=== PATIENT | male | born 1990 | race Caucasian/White ===

== ENCOUNTER 2016-06-02 13:17 | Emergency (ER) | payer OTHER ==
[~2016-06-02] VITALS: Ht 175.3 cm; Wt 112.4 kg
[2016-06-02] MEDS ORDERED: [UNRECOGNIZED DRUG - OTHER] (13:30)
[2016-06-02] MEDS ORDERED: CLON-412 PO (13:30)
[2016-06-02] MEDS ORDERED: MIRT30TA3 PO (13:30)
[2016-06-02] MEDS ORDERED: PAXI30TA11 PO (13:30)
[2016-06-02] MEDS ORDERED: [UNRECOGNIZED DRUG - REMARK] (13:30)
[2016-06-02] MEDS ORDERED: NORCOTAB PO (15:09)
[2016-06-02 15:24] VITALS: BP 148/102
--- NOTE | 2016-06-03 06:14 | REP ---
Pain after trauma. COMPARISON: 08/07/2015. There is an acute fracture involving the base of the fifth metacarpal. There is an old healed fracture involving the base of the fourth metacarpal. Signed by Denzel Diaz DO 06/03/2016 03:39 P
== END 2016-06-02 15:28 | disposition home or self-care (01) ==
LOC: M ED 14:33
DX: S62.346A Nondisplaced fracture of base of fifth metacarpal bone, right hand, initial encounter for closed fracture (principal); W23.1XXA Caught, crushed, jammed, or pinched between stationary objects, initial encounter; Y92.89 Other specified places as the place of occurrence of the external cause; Y93.89 Activity, other specified; Y99.9 Unspecified external cause status

== ENCOUNTER → 2016-11-11 | Outpatient (REF) | payer OTHER ==
[~2016-11-11] MED LIST: CLON-412 PO; MIRT30TA3 PO; NORCOTAB PO; PAXI30TA11 PO; [UNRECOGNIZED DRUG - OTHER]; [UNRECOGNIZED DRUG - REMARK]
[2016-11-11 16:08] LABS: BASO # 0.1 10^3/uL (0.0-0.2); BASO % 0.7 % (0.0-1.0); EOS # 0.2 10^3/uL (0.0-0.50); EOS % 2.4 % (0.0-3.0); IMMATURE GRANULOCYTE % 0.5 % (0-0); LYMPH # 2.8 10^3/uL (1.5-6.5); LYMPH % 31.9 % (24.0-44.0); MEAN CORPUSCULAR HEMOGLOBIN 30.4 pg (27.0-33.0); MEAN CORPUSCULAR HGB CONC 33.2 g/dl (32.0-36.5); MEAN CORPUSCULAR VOLUME 91.5 fl (80.0-96.0); MONO # 0.7 10^3/uL (0.0-0.8); MONO % 8.1 % (0.0-5.0); NEUTROPHILS % 56.4 % (36.0-66.0); PLATELET COUNT, AUTOMATED 282 10^3/uL (150-450); RED CELL DISTRIBUTION WIDTH 13.3 % (11.5-14.5); WHITE BLOOD COUNT 8.8 10^3/uL (4.0-10.0)
[2016-11-11 16:33] LABS: URIC ACID 6.6 MG/DL (3.5-7.2)
[2016-11-11 16:40] LABS: ERYTHROCYTE SEDIMENTATION RATE 3 mm/hr (0-15)
[2016-11-14 00:07] LABS: Lyme Disease IgG/IgM Antibodie <0.91 ISR (0.00-0.90); Lyme Disease IgM Ab Quantitati <0.80 index (0.00-0.79)
== END ==
LOC: M LABDRAW1 15:30
PROVIDERS: ATTEND Physician Assistant Surgical
DX: S62.346D Nondisplaced fracture of base of fifth metacarpal bone, right hand, subsequent encounter for fracture with routine healing (principal); X58.XXXD Exposure to other specified factors, subsequent encounter; Y92.9 Unspecified place or not applicable; Y93.9 Activity, unspecified; Y99.9 Unspecified external cause status

== ENCOUNTER 2017-09-06 12:11 | Emergency (ER) | payer OTHER ==
[2017-09-06 13:18] LABS: HEMATOCRIT 51.6 % (42.0-52.0); HEMOGLOBIN 17.8 g/dl (13.5-17.5); MEAN CORPUSCULAR HEMOGLOBIN 30.5 pg (27.0-33.0); MEAN CORPUSCULAR HGB CONC 34.5 g/dl (32.0-36.5); MEAN CORPUSCULAR VOLUME 88.4 fl (80.0-96.0); PLATELET COUNT, AUTOMATED 304 10^3/uL (150-450); RED BLOOD COUNT 5.84 10^6/uL (4.30-6.10); RED CELL DISTRIBUTION WIDTH 13.4 % (11.5-14.5); WHITE BLOOD COUNT 14.4 10^3/uL (4.0-10.0)
[2017-09-06 13:33] LABS: AMPHETAMINES LEVEL URINE NEGATIVE (NEGATIVE); BARBITURATES URINE NEGATIVE (NEGATIVE); BENZODIAZEPINES URINE NEGATIVE (NEGATIVE); CANNABINOIDS URINE NEGATIVE (NEGATIVE); COCAINE METABOLITE URINE POSITIVE (NEGATIVE); METHADONE URINE NEGATIVE (NEGATIVE); OPIATES URINE NEGATIVE (NEGATIVE); PHENCYCLIDINE URINE NEGATIVE (NEGATIVE)
[2017-09-06 13:44] LABS: ALBUMIN 4.4 GM/DL (3.2-5.2); ALBUMIN/GLOBULIN RATIO 1.26 (1.00-1.93); ALKALINE PHOSPHATASE 50 U/L (45-117); ALT/SGPT 34 U/L (12-78); ANION GAP 8 MEQ/L (8-16); AST/SGOT 21 U/L (7-37); BILIRUBIN,DIRECT 0.1 MG/DL (0.0-0.2); BILIRUBIN,TOTAL 0.5 MG/DL (0.2-1.0); BLOOD UREA NITROGEN 8 MG/DL (7-18); CALCIUM LEVEL 9.5 MG/DL (8.5-10.1); CARBON DIOXIDE LEVEL 26 MEQ/L (21-32); CHLORIDE LEVEL 106 MEQ/L (98-107); CREATININE FOR GFR 1.14 MG/DL (0.70-1.30); ETHYL ALCOHOL (ETHANOL) 0.006 % (0.000-0.010); GLOMERULAR FILTRATION RATE > 60.0 (>60); GLUCOSE, FASTING 99 MG/DL (70-100); POTASSIUM SERUM 4.2 MEQ/L (3.5-5.1); SALICYLATE LEVEL 2.1 MG/DL (5.0-30.0); SODIUM LEVEL 140 MEQ/L (136-145); TOTAL PROTEIN 7.9 GM/DL (6.4-8.2)
[2017-09-06 13:45] LABS: ACETAMINOPHEN LEVEL < 2.0 UG/ML (10.0-30.0)
== END 2017-09-06 14:12 | disposition home or self-care (01) ==
LOC: M ED 12:11
DX: F33.9 Major depressive disorder, recurrent, unspecified (principal); F43.20 Adjustment disorder, unspecified; F17.210 Nicotine dependence, cigarettes, uncomplicated; F14.10 Cocaine abuse, uncomplicated
CPT/HCPCS: 80320

== ENCOUNTER 2017-09-29 17:47 | Emergency (ER) | payer OTHER ==
[2017-09-29] MEDS: KETOROLAC TROMETHAMINE 10 MG TAB PO (20:48)
== END 2017-09-29 22:36 | disposition home or self-care (01) ==
LOC: M ED 17:47
DX: S00.81XA Abrasion of other part of head, initial encounter (principal); S00.83XA Contusion of other part of head, initial encounter; X58.XXXA Exposure to other specified factors, initial encounter; Y92.099 Unspecified place in other non-institutional residence as the place of occurrence of the external cause; Y93.9 Activity, unspecified; Y99.9 Unspecified external cause status; F41.9 Anxiety disorder, unspecified; F32.9 Major depressive disorder, single episode, unspecified; Z72.0 Tobacco use
CPT/HCPCS: 70450

== ENCOUNTER 2018-05-14 18:08 | Emergency (ER) | payer OTHER ==
[~2018-05-14] VITALS: Ht 175.3 cm; Wt 101.3 kg
[~2018-05-14 18:08] MED LIST changes: +HYDR-3715 PO; -NORCOTAB PO
[2018-05-14] MEDS ORDERED: NYQU1CAP PO (18:29)
[2018-05-14] MEDS ORDERED: AMOX875T PO (20:06)
[2018-05-14] MEDS ORDERED: AMOXICILLIN 500 MG CAP PO ONE (20:15)
[2018-05-14 20:18] VITALS: BP 118/74
== END 2018-05-14 20:19 | disposition home or self-care (01) ==
LOC: M ED 18:08
DX: J02.0 Streptococcal pharyngitis (principal); Z72.0 Tobacco use